=== PATIENT | female | born 1985 | race African-American/Black ===

== ENCOUNTER 2020-03-30 02:51 | Emergency (ER) | payer MEDICAID ==
[~2020-03-30] VITALS: Ht 172.7 cm; Wt 70.0 kg
[2020-03-30] MEDS ORDERED: VISCOUS LIDOCAINE 2% 15 ML UDC PO ONE (04:45)
[2020-03-30] MEDS ORDERED: ASPIRIN 81MG TABLET PO ONE (04:45)
[2020-03-30] MEDS ORDERED: MAGNESIUM/ALUMINUM HYDROXIDE/SIMETHICONE 30ML UDC PO ONE (04:45)
[2020-03-30 05:07] LABS: BASOPHILS % 0.4 % (0.0-2.0); EOSINOPHILS % 3.2 % (0.0-5.0); HEMATOCRIT. 34.7 % (36.0-48.0); HEMOGLOBIN. 11.5 g/dL (12.0-16.0); LYMPHOCYTES % 63.3 % (20.0-50.0); MEAN CORPUSCULAR HEMOGLOBIN 28.4 pg (28.0-32.0); MEAN CORPUSCULAR VOLUME 85.6 fL (81.0-99.0); MONOCYTES % 5.4 % (2.0-8.0); NEUTROPHILS % 27.7 % (40.0-76.0); PLATELET 206 x1000/uL (130-400); RED BLOOD CELL COUNT 4.06 mill/uL (4.2-5.4)
[2020-03-30 05:21] LABS: CHLORIDE 102 mEq/L (98-107)
[2020-03-30 05:50] LABS: HCG SCREEN NEGATIVE
[2020-03-30] MEDS ORDERED: IOHEXOL-350 100 ML BOTTLE ONE (08:45)
[2020-03-30 11:54] VITALS: BP 150/78
== END 2020-03-30 11:18 | disposition home or self-care (01) ==
LOC: ER 02:51 → CANBEDREQ 03-31 06:30
DX: R07.89 Other chest pain (principal); M79.605 Pain in left leg
CPT/HCPCS: 36415; 71045; 71275; 80053; 83880; 84484; 84703; 85025; 85379; 93005; 93971; 99285; Q9967; Z7610

== ENCOUNTER 2020-12-21 20:19 | Emergency (ER) | payer MEDICAID ==
[~2020-12-21] VITALS: Ht 172.7 cm; Wt 66.0 kg
[2020-12-21] MEDS ORDERED: KETOROLAC 60MG/2ML VIAL IM ONE (21:00)
[2020-12-21 21:17] LABS: BASOPHILS % 0.3 % (0.0-2.0); EOSINOPHILS % 0.1 % (0.0-5.0); HEMATOCRIT. 33.6 % (36.0-48.0); HEMOGLOBIN. 11.1 g/dL (12.0-16.0); LYMPHOCYTES % 18.1 % (20.0-50.0); MEAN CORPUSCULAR HEMOGLOBIN 27.1 pg (28.0-32.0); MEAN PLATELET VOLUME 7.9 fl (7.4-10.4); MONOCYTES % 2.5 % (2.0-8.0); PLATELET 238 x1000/uL (130-400); RED CELL DISTRIBUTION WIDTH 16.9 % (11.6-14.6)
[2020-12-21 21:24] LABS: CHLORIDE 107 mEq/L (98-107)
[2020-12-21 21:33] LABS: CLARITY URINE CLEAR (CLEAR); COLOR URINE YELLOW (YELLOW); KETONES URINE TRACE (NEGATIVE); LEUKOCYTE ESTERASE URINE NEGATIVE (NEGATIVE); NITRITE URINE NEGATIVE (NEGATIVE); OCCULT BLOOD URINE NEGATIVE (NEGATIVE); PH URINE 6.5 (4.5-8.0); PROTEIN URINE NEGATIVE (NEGATIVE); SPECIFIC GRAVITY URINE 1.028 (1.005-1.030); UROBILINOGEN URINE 0.2 E.U./dL (0.2-1.0)
[2020-12-21] MEDS ORDERED: IBUP-2028 MT (22:32)
[2020-12-22 00:07] VITALS: BP 129/74
== END 2020-12-21 23:00 | disposition home or self-care (01) ==
LOC: ER 21:00
DX: R51.9 Headache, unspecified (principal); M79.605 Pain in left leg
CPT/HCPCS: 36415; 80053; 81003; 81025; 85025; 93970; 96372; 99284; J1885

== ENCOUNTER 2024-09-08 23:42 | Emergency (ER) | payer MEDICAID ==
[~2024-09-08] VITALS: Ht 170.2 cm; Wt 73.0 kg
[~2024-09-08 23:42] MED LIST: IBUP-2028 MT
[2024-09-08 23:59] VITALS: BP 142/93; PULSE 91; RESP 16; TEMP 36.7; O2SAT 100
== END 2024-09-09 00:47 | disposition left against medical advice (07) ==
LOC: ER 23:42
DX: R10.2 Pelvic and perineal pain (principal); Z98.890 Other specified postprocedural states; Z53.21 Procedure and treatment not carried out due to patient leaving prior to being seen by health care provider